=== PATIENT | male | born 1950 | race Caucasian/White ===

== ENCOUNTER 2017-08-11 08:22 | Day surgery (SDC) | payer MEDICARE, OTHER ==
[2017-08-11] MEDS ORDERED: PROPOFOL 200 MG/20 ML BOTTLE IV ONE (08:23)
[2017-08-11] MEDS ORDERED: SEVOFLURANE 250 ML BOTTLE IH ONE (08:23)
[2017-08-11] MEDS ORDERED: GLYCOPYRROLATE 0.2 MG/ML VIAL MC ONE (08:23)
[2017-08-11] MEDS ORDERED: CEFAZOLIN 1 G VIAL MC ONE (08:23)
[2017-08-11] MEDS ORDERED: DEXAMETHASONE SOD PHOSPHATE 4 MG INJ IV ONE (08:23)
[2017-08-11] MEDS ORDERED: VECURONIUM BROMIDE 10 MG VIAL IV ONE (08:23)
[2017-08-11] MEDS ORDERED: IV LACTATED RINGERS SOLUTION 1,000 ML BAG IV ONE (08:23)
[2017-08-11] MEDS ORDERED: EPHEDRINE SULFATE 50 MG/ML AMPUL MC ONE (08:23)
[2017-08-11] MEDS ORDERED: ONDANSETRON 4 MG/2 ML VIAL IV ONE (08:23)
[2017-08-11] MEDS ORDERED: POLYMYXIN B SULFATE 500,000 UNITS, BACITRACIN 50,000 UNITS, NORMAL SALINE 20 ML MC ONE ×3 (08:30)
[2017-08-11] MEDS ORDERED: CEFAZOLIN 100 ML IV ONE (08:38)
[2017-08-11] MEDS ORDERED: BUPIVACAINE 0.25% 30 ML VIAL ONE (09:06)
[2017-08-11] MEDS ORDERED: LIDOCAINE 1%-EPI 1:100,000 20 ML VIAL ONE (09:06)
[2017-08-11] MEDS ORDERED: FENTANYL CITRATE 100 MCG/2 ML AMPUL ONE (12:48)
[2017-08-11] MEDS ORDERED: KETOROLAC TROMETHAMINE 30 MG INJ ONE (13:08)
[2017-08-11] MEDS ORDERED: HYDROCODONE/APAP 5-325MG TABLET ONE (13:53)
== END 2017-08-11 14:42 | disposition home or self-care (01) ==
LOC: DS 08:22
PROVIDERS: ATTEND Surgery
DX: K40.20 Bilateral inguinal hernia, without obstruction or gangrene, not specified as recurrent (principal); K43.9 Ventral hernia without obstruction or gangrene; E66.9 Obesity, unspecified; I10 Essential (primary) hypertension
CPT/HCPCS: 36415; 85730; A4663; J0690; J1100; J1885; J2405; J3010; J3490; J7120

== ENCOUNTER 2020-10-14 06:44 | Outpatient (CLI) | payer MEDICARE, OTHER | END 2020-10-14 23:59 | disposition home or self-care (01) | LOC: LAB 06:44 | PROVIDERS: ATTEND Surgery | DX: Z01.812 Encounter for preprocedural laboratory examination (principal); Z20.822 Contact with and (suspected) exposure to COVID-19; R19.4 Change in bowel habit ==

== ENCOUNTER 2020-10-15 07:40 | Day surgery (SDC) | payer MEDICARE, OTHER ==
[2020-10-15] MEDS ORDERED: PROPOFOL 200 MG/20 ML BOTTLE IV ONE (07:41)
[2020-10-15] MEDS ORDERED: LIDOCAINE-MPF 2% 5 ML VIAL IJ ONE (07:41)
[2020-10-15 08:31] LABS: HEMATOCRIT 45.1 % (36.7-47.1); MEAN CORPUSCULAR HEMOGLOBIN 30.2 uug (23.8-33.4); MEAN CORPUSCULAR VOLUME 89.2 fL (73.0-96.2); PLATELET COUNT (AUTO) 187 K/uL (152-348)
[2020-10-15 08:37] LABS: CREATININE 1.2 mg/dL (0.6-1.3); POTASSIUM 4.3 mmol/L (3.5-5.1)
[2020-10-15 08:44] LABS: *BILIRUBIN,URIN NEGATIVE (NEGATIVE); *BLOOD, URINE TRACE (NEGATIVE); *CLARITY,URINE CLOUDY (CLEAR); *COLOR,URINE YELLOW (YELLOW); *KETONES,URINE NEGATIVE (NEGATIVE); *UROBILINOGEN,URINE 0.2 E.U./dl (NORMAL); LEUKOCYTE ESTERASE ,URINE 2+ (NEGATIVE); NITRITE, URINE POSITIVE (NEGATIVE); PH,URINE 5.5 (5.0-8.0); UGLUCOSE NEGATIVE (NEGATIVE)
[2020-10-15] MEDS ORDERED: PROPOFOL 200 MG/20 ML BOTTLE ONE (10:09)
[2020-10-15 13:32] LABS: BACTERIA,URINE MANY /HPF (NONE SEEN); RBC,URINE 0-3 /HPF (0-3); WBC,URINE TNTC /HPF (0-3)
[2020-10-15 13:33] LABS: SQUAMOUS EPITHELIAL CELL,UR FEW /HPF (NONE SEEN)
== END 2020-10-15 12:50 | disposition home or self-care (01) ==
LOC: DS 07:40
PROVIDERS: ATTEND Surgery
DX: R19.4 Change in bowel habit (principal); R10.9 Unspecified abdominal pain; K57.30 Diverticulosis of large intestine without perforation or abscess without bleeding; K44.9 Diaphragmatic hernia without obstruction or gangrene; K63.89 Other specified diseases of intestine; K31.89 Other diseases of stomach and duodenum; K63.5 Polyp of colon; K29.50 Unspecified chronic gastritis without bleeding; I10 Essential (primary) hypertension; M19.90 Unspecified osteoarthritis, unspecified site; F32.9 Major depressive disorder, single episode, unspecified; Z79.899 Other long term (current) drug therapy; Z98.890 Other specified postprocedural states; Z87.11 Personal history of peptic ulcer disease
CPT/HCPCS: 36415; 43239; 45380; 45385; 71045; 80048; 81001; 85025; 85730; 87086; 93005; J3490; J7120; 87077; 88313-TC; 88342; A4217; A4663